=== PATIENT | female | born 1990 | race Caucasian/White ===

== ENCOUNTER 2021-01-09 14:40 | Emergency (ER) | payer OTHER, SELFPAY ==
--- NOTE | ~2021-01-09 | XR_ITS ---
EXAMINATION: XR CERVICAL SPINE CLINICAL INFORMATION: Pain. No trauma. COMPARISON: None TECHNIQUE: 3 views of the cervical spine were obtained. FINDINGS: There is no acute fracture or subluxation. The vertebral bodies and posterior elements are anatomically aligned. Vertebral body heights and intervertebral disc spaces are maintained. The atlantoaxial joint is appropriately aligned. The prevertebral soft tissues are unremarkable. The lung apices are clear. XR/XR cervical spine 2V IMPRESSION: Normal appearance of the cervical spine.
--- NOTE | ~2021-01-09 | XR_ITS ---
EXAMINATION: XR SHOULDER, LEFT CLINICAL INFORMATION: Pain. No trauma COMPARISON: None TECHNIQUE: Three views of the left shoulder. FINDINGS: No fracture or dislocation. The glenohumeral joint is well aligned. The joint space is maintained. The acromioclavicular joint is intact. The visualized lung is clear. The visualized ribs are intact. XR/XR shoulder LT min 2V IMPRESSION: Normal left shoulder.
[2021-01-09 14:58] VITALS: BP 125/81; PULSE 77; RESP 18; TEMP 36.5; O2SAT 98; BMI 25.2
--- NOTE | 2021-01-09 17:15 | ED_ITS ---
HPI - Extremity Problem General Chief complaint: Extremity Problem Stated complaint: left shoulder back pain Time Seen by Provider: 01/09/21 17:07 Source: patient Mode of arrival: ambulatory Limitations: no limitations History of Present Illness HPI Narrative: 30-year-old female previously healthy here with complaints of left upper extremity and back pain for 2 weeks. Patient tells me that she first noticed some pain in her left upper back that she felt was a spasm. She was doing some gentle massage which seem to help however over the last week she has noticed more pain over the shoulder and upper shoulder which radiates down the arm. No numbness or tingling. No weakness. NO Fevers or chills. no Headache. No injury or trauma but does work in a post office lifting heavy object Related Data Previous Rx's Medication Instructions Recorded cyclobenzaprine 10 mg tablet 10 mg PO TID PRN #10 tab 01/09/21 naproxen 500 mg tablet 500 mg PO BID PRN #15 tab 01/09/21 prednisone 20 mg tablet 40 mg PO DAILY #10 tab 01/09/21 Allergies Allergy/AdvReac Type Severity Reaction Status Date / Time No Known Allergies Allergy Unverified 02/29/20 18:54 [No Known Allergies*] Review of Systems Review of Systems: Yes all other systems are reviewed and are negative Constitutional: Constitutional: Reports no additional constitutional complaints, Denies body ache(s), Denies chills, Denies fever(s), Denies headache(s) and Denies weakness Eyes: Eyes: Reports no additional eye complaints and Denies change in vision ENT: Reports system reviewed and no additional complaints, except as documented, Denies dizziness, Denies headache(s), Denies nasal congestion, Denies nasal discharge and Denies neck pain Cardiovascular: Cardiovascular: Reports no additional cardiovascular complaints, Denies chest pain, Denies leg edema and Denies dyspnea Respiratory: Respiratory: Reports no additional respiratory complaints, Denies cough and Denies dyspnea Gastrointestinal: Gastrointestinal: Reports no additional gastrointestinal complaints, Denies abdominal pain, Denies diarrhea, Denies nausea and Denies vomiting Genitourinary: Genitourinary: Reports no additional female genitourinary complaints and Denies urinary incontinence Musculoskeletal: Musculoskeletal: Reports no additional musculoskeletal complaints, Reports back pain, Reports arthralgias, Denies joint swelling, Denies neck pain, Denies numbness and Denies tingling Integumentary/Breasts: Skin/Breast: Reports system reviewed and no additional complaints, except as docu and Denies rash Neurologic: Reports system reviewed and no additional complaints, except as documented, Denies Abnormal speech present, Denies dizziness, Denies headache(s), Denies numbness, Denies tingling and Denies weakness PMFSH Past Medical History Attestation statement: The following information was validated with the patient. Source: old records reviewed and nursing notes reviewed Medical History delivery delivered No known health problems Social History Social History Advance Directives: No Advance Directives Information Provided: No Patient : No Physical Exam Vital Signs: Vital Signs: Last Vital Signs Temp 97.7 F 01/09/21 14:58 Pulse 77 01/09/21 14:58 Resp 18 01/09/21 14:58 BP 125/81 01/09/21 14:58 Pulse Ox 98 01/09/21 14:58 Body Mass Index 25.2 Const: General: cooperative, healthy appearing, comfortable and no acute distress Orientation/consciousness: patient oriented x3 Limitations: no limitations HENMT: Head: Yes normal to inspection Ears: hearing grossly normal bilaterally General nose exam: Normal external nose present Face and sinus: Yes normal facial exam Mouth: Normal oral and palatal mucosa present Throat: Yes posterior oropharynx normal Eyes: General: appearance normal, both eyes and all related structures Pupils: Equal, round and reactive pupils present Neck: Other: Tenderness over the left trapezius with palpable muscle spasm Neck: Yes normal visual inspection Chest: Chest palpation & inspection: normal inspection of the chest Resp: Effort & Inspection: normal respiratory effort Auscultation: clear to auscultation bilaterally Cardio: Rate: regular rate Rhythm: regular rhythm Peripheral pulses: Peripheral pulses 2+ throughout GI: Inspection: Yes normal to inspection Palpation (GI): Soft to palpation and nontender Auscultation: normal bowel sounds : General: Yes no CVA tenderness Back/Spine/Pelvis: Other: Pain and the left thoracic paraspinal area with palpable muscle spasm no midline tenderness, step-off deformities Back: no CVA tenderness Thoracic/Lumbar Spine: thoracic and lumbar spine normal to inspection Skin: General skin exam: no rashes or lesions noted Neuro: General: patient oriented x3, no focal motor deficits and normal sensation to monofilament Cranial nerves: Yes CN's II-XII intact bilaterally, Yes Equal, round and reactive pupils present, Yes Bilaterally intact EOM present, Yes Nystagmus not present, Yes Normal facial strength present and Yes Midline tongue present Cognition (Neuro): normal cognition Speech: No Abnormal speech present Gait exam (Neuro): Normal gait present Motor exam (neuro): 5/5 motor strength present throughout Sensory Exam: Normal double si multaneous stimulation for sensation Extrem: Other: Tenderness over the left anterior and posterior shoulder which is worsened with abduction. No weakness. No paresthesias. Distal pulses palpated General: Yes normal to inspection Course Course Course Narrative: 30-year-old female here with complaints of left upper back, neck and shoulder pain over the last week. No known injury. Exam is more consistent with muscle spasm questions cervical radiculopathy. Will check x- rays 1750-X-rays show no bony abnormality. Likely cervical radculopathy. No weakness or concerning symptoms for cord compression. Reviewed worrisome signs symptoms when to return to the emergency department. Comfortable discharge home. MDM - Extremity (Nontraumatic) Medical Records Attestation: I reviewed the patient's medical records. Lab Data Attestation: I reviewed the patient's lab results. Imaging Data cervical xray: Attestation: I personally reviewed and interpreted this imaging study as follows: Radiologist's impression: FINDINGS: There is no acute fracture or subluxation. The vertebral bodies and posterior elements are anatomically aligned. Vertebral body heights and intervertebral disc spaces are maintained. The atlantoaxial joint is appropriately aligned. The prevertebral soft tissues are unremarkable. The lung apices are clear. XR/XR cervical spine 2V IMPRESSION: Normal appearance of the cervical spine. ? shoulder xray: Attestation: I personally reviewed and interpreted this imaging study as follows: Radiologist's impression: TECHNIQUE: Three views of the left shoulder. FINDINGS: No fracture or dislocation. The glenohumeral joint is well aligned. The joint space is maintained. The acromioclavicular joint is intact. The visualized lung is clear. The visualized ribs are intact.? XR/XR shoulder LT min 2V IMPRESSION: Normal left shoulder. Discharge Plan Discharge Clinical Impression: Cervical radiculopathy Patient Disposition: Home, Self-Care Instructions: Cervical Radiculopathy (ED) Additional Instructions: heat gentle stretching follow up with pcp wednesday Your x-rays showed that the bones look normal. Likely you have a pinched nerve and this can be evaluated further on an MRI. This would have to be ordered by your primary care doctor No heavy lifting ot bending Prescriptions: New prednisone 20 mg tablet 40 mg PO DAILY Qty: 10 RF: 0 cyclobenzaprine 10 mg tablet 10 mg PO TID PRN (Reason: muscle spasm) Qty: 10 RF: 0 naproxen 500 mg tablet 500 mg PO BID PRN (Reason: pain) Qty: 15 RF: 0 Referrals: Physician,Unknown [Primary Care Provider] - 2 days Interventions: ED Discharge Assessment Last Done: 01/09/21 18:07 Discharge Date/Time: 01/09/21 18:07
== END 2021-01-09 18:07 | disposition home or self-care (01) ==
PROVIDERS: Emergency Provider Emergency Medicine Emergency Medical Services
DX: M54.12 Radiculopathy, cervical region (principal); M25.512 Pain in left shoulder; Z79.899 Other long term (current) drug therapy
CPT/HCPCS: 72040; 73030; 99283

== ENCOUNTER 2021-03-27 10:00 | Outpatient (RCR) | payer OTHER, SELFPAY | END 2021-04-28 17:15 | disposition home or self-care (01) | LOC: HO.PTCHIC 10:00 | PROVIDERS: Visit Provider Physician Assistant | DX: M54.2 Cervicalgia (principal); M25.512 Pain in left shoulder | CPT/HCPCS: 97110; 97140; 97161 ==